=== PATIENT | female | born 1990 | race Caucasian/White ===

== ENCOUNTER 2022-08-08 10:51 | Emergency (ER) | payer BC, SELFPAY ==
--- NOTE | 2022-08-08 10:53 | ED.URI ---
HPI - URI/Sore Throat General Chief Complaint: Upper Respiratory Infection Stated Complaint: Sore Throat Time Seen by Provider: 08/08/22 10:54 Source: patient and RN notes reviewed History of Present Illness HPI Narrative: patient is a 32-year-old female who presents to urgent care with complaints of a sore throat, body aches, fever, congestion. Patient states that it started on FridayAnd she has been taking ibuprofen, Tylenol and cold and flu medication. Patient states that she had a negative COVID test at home. Denies any ill exposures. No other acute complaints. No acute distress noted. Patient aware of the plan care. Some parts of this dictation were generated by voice recognition software and may contain typographical and/or grammatical inaccuracies. Related Data Allergies Allergy/AdvReac Type Severity Reaction Status Date / Time No Known Allergies Allergy Verified 08/08/22 11:14 Review of Systems Review of Systems: CONSTITUTIONAL: reports of fever, chills EYES: Denies visual changes, redness, or discharge. ENT: reports of sore throat, congestion CARDIOVASCULAR: Denies chest pain, palpitations, or edema. RESPIRATORY: Denies cough or dyspnea. GASTROINTESTINAL: Denies abdominal pain, nausea, vomiting, or diarrhea. GENITOURINARY: Denies dysuria or hematuria. SKIN: Denies rash or itching. MUSCULOSKELETAL: Denies back pain, joint pain . Reports body aches NEUROLOGIC: Denies headache, numbness, or weakness. All other systems reviewed are negative, except as documented in HPI. PMFSH Comments At the time of my signature, I reviewed and agree with the nursing past medical, surgical, social, and family history. There is no relevant family history pertinent to the patient complaint. Exam Narrative: GENERAL: This is a well-nourished, well-developed patient. . appears fatigued HEAD: normocephalic, atraumatic. EYES: PERRL. Sclera clear/white. Vision is grossly intact. EARS: External ears normal, auditory canals clear and without drainage, TMs normal without perforation. Hearing grossly intact. NOSE: External nose normal with no obvious nasal discharge, nares without redness, yellow rhinorrhea. THROAT: Mucous membranes moist, mild erythema to posterior pharynx with moderate postnasal drainage NECK: Neck supple, non-tender without lymphadenopathy CARDIOVASCULAR: Regular rate and rhythm without murmurs, gallops, or rubs. RESPIRATORY: Clear to auscultation. Breath sounds equal bilaterally. No wheezes, rales, or rhonchi. SKIN: warm, intact with no suspicious lesions or rash, good texture and turgor. NEURO: awake, alert, and oriented to person, place and time. There were no obvious focal neurologic abnormalities. EXTREMITIES: No clubbing, cyanosis, or edema. Course Course Level of Care: Express Care Visit Vital Signs Vital signs: Vital Signs Temperature 98.9 F 08/08/22 10:58 Pulse Rate 94 08/08/22 10:58 Respiratory Rate 20 08/08/22 10:58 Blood Pressure 135/79 08/08/22 10:58 Pulse Oximetry 100 08/08/22 10:58 Oxygen Delivery Room Air 08/08/22 10:58 Temperature 98.9 F 08/08/22 10:58 Pulse Rate 94 08/08/22 10:58 Respiratory Rate 20 08/08/22 10:58 Blood Pressure 135/79 08/08/22 10:58 Pulse Oximetry 100 08/08/22 10:58 Oxygen Delivery Room Air 08/08/22 10:58 reviewed MDM - URI/Sore Throat MDM Narrative Medical decision making narrative: reviewed lab results with the patient. She is aware that flu swab was negative. Due to the lack of resources, unable to complete a rapid strep. Will treat based on symptoms. considering you will be treated, culture results will not be called. However I would advise calling the facility and checking on culture results within 24-36 hours. And be sure to eat and drink with the medication. Increase fluid intake. Use Zyrtec/ Claritin/ibuprofen/ Tylenol for symptom relief. Follow-up with your PCP within 2-5 days or for worsening symptom
[2022-08-08 10:58] VITALS: BP 135/79; PULSE 94; RESP 20; TEMP 37.2; O2SAT 100
== END 2022-08-08 12:03 | disposition home or self-care (01) ==
PROVIDERS: Emergency Provider Nurse Practitioner Family
DX: J02.9 Acute pharyngitis, unspecified (principal)
CPT/HCPCS: 87081; 87804; 99203; G0463